=== PATIENT | female | born 1990 | race American Indian/Alaskan Native ===

== ENCOUNTER 2020-07-08 18:48 | Emergency (ER) | payer MEDICAID ==
[2020-07-08 20:08] VITALS: BP 98/63
[2020-07-08 23:03] LABS: Bacteria,Urine 1+ /HPF (Negative); Bilirubin,Urine NEG (Negative); Blood,Urine NEG (Negative); Color,Urine Yellow (Yellow); Mucus,Urine 3+ /HPF; Protein,Urine <15 mg/dL mg/dL (Negative)
[2020-07-08 23:04] LABS: HCG Qualitative,Urine Negative (Negative)
== END 2020-07-09 01:38 | disposition left against medical advice (07) ==
LOC: ED 18:48
DX: R10.30 Lower abdominal pain, unspecified (principal); Z53.21 Procedure and treatment not carried out due to patient leaving prior to being seen by health care provider
CPT/HCPCS: 81001; 81025